=== PATIENT | female | born 1930 | race Caucasian/White ===

== ENCOUNTER 2016-11-21 23:53 | Emergency (ER) | payer MEDICARE ==
[2016-06-08 11:00] VITALS: BP 118/73
[~2016-11-21 23:53] MED LIST: AMIT25TA PO; AMLO10TA2 PO; CAPT50TA2 PO; LORA0.5T PO; PHEN100C PO; PHEN32.42 PO
== END 2016-11-22 00:36 | disposition left against medical advice (07) ==
LOC: ER 23:59
DX: I10 Essential (primary) hypertension (principal); R51 Headache